=== PATIENT | female | born 1950 | race Caucasian/White ===

== ENCOUNTER 2022-07-02 12:06 | Outpatient (CLI) | payer MEDICARE | END 2022-07-02 12:07 | disposition home or self-care (01) | LOC: BICCT 12:06 → EDSEX 13:00 | PROVIDERS: ATTEND Family Medicine Sports Medicine | DX: Z12.31 Encounter for screening mammogram for malignant neoplasm of breast (principal); Z13.820 Encounter for screening for osteoporosis; Z12.2 Encounter for screening for malignant neoplasm of respiratory organs; F17.210 Nicotine dependence, cigarettes, uncomplicated; M85.89 Other specified disorders of bone density and structure, multiple sites; Z78.0 Asymptomatic menopausal state | CPT/HCPCS: 71271; 77063; 77067; 77080 ==

== ENCOUNTER 2023-04-05 08:54 | Observation (INO) | payer MEDICARE ==
[2023-04-05] MEDS ORDERED: Ipratropium/Albuterol 3 ML NEB ONE (09:18)
[2023-04-05] MEDS ORDERED: Dexamethasone 10 MG/ML VIAL ONE (09:45)
[2023-04-05] MEDS ORDERED: Azithromycin 500 MG VIAL ONE (09:46)
[2023-04-05 09:55] LABS: #Monocytes 0.9 thou/uL (0.11-0.59); #Neutrophils 5.2 thou/uL (1.40-6.50); %Basophils 0.3 % (0.0-1.0); %Lymphocytes 19.9 % (21.0-51.0); %Monocytes 11.3 % (0.0-10.0); %Neutrophils 68.2 % (42.0-75.0); Hematocrit 42.5 % (36.0-47.0); Hemoglobin 14.2 g/dL (12.0-16.0); Mean Corpuscular HGB CONC 33.4 g/dL (32.0-36.0); Mean Corpuscular Volume 89.9 fl (78.0-98.0); Mean Platelet Volume 9.7 fL (7.4-10.4); Platelet Count 123 10x3/uL (130-400); RBC Distribution Width 12.1 % (11.5-14.5); Red Blood Cell (RBC) Count 4.73 mill/uL (4.20-5.40); White Blood Cell (WBC) Count 7.6 10x3/uL (4.8-10.8)
[2023-04-05 10:19] LABS: ALT (SGPT) 15 U/L (8-55); AST (SGOT) 35 U/L (5-34); Albumin 4.2 g/dL (3.4-4.8); Alkaline Phosphatase 92 U/L (40-110); Anion Gap 15 mmol/L (10-20); BUN (Urea Nitrogen) 14 mg/dL (9.8-20.1); Bilirubin, Total 0.5 mg/dL (0.2-1.2); Calc. Creatinine Clearance 0 mL/min (70-130); Calcium 8.9 mg/dL (7.8-10.44); Carbon Dioxide 25 mmol/L (23-31); Chloride 100 mmol/L (98-107); Estimated GFR 54; Globulin 3.1 g/dL (2.4-3.5); Glucose 110 mg/dL (83-110); Potassium 3.7 mmol/L (3.5-5.1); Protein, Total 7.3 g/dL (5.8-8.1); Sodium 136 mmol/L (136-145)
[2023-04-05 11:19] LABS: SARS-CoV-2 NAA Rapid Test Not Detected (NotDetected)
[2023-04-05 11:21] LABS: Actual Bicarbonate (HCO3v) 24.3 mEq/L (22-28); Analyzer IN Cardio ER; Base Excess -2.5 mEq/L (-2.0 to +3.0); Calcium, Ionized (venous) 1.07 mmol/L (1.16-1.32); Chloride (VBG) 98 mmol/L (98-106); Hematocrit-VBG 38 % (36.0-47.0); Hemoglobin (Hb) 12.8 g/dL (11.7-16.1); Potassium (VBG) 3.67 mmol/L (3.70-5.30); Sodium 131 mmol/L (133-146); pH (venous) 7.303 (7.32-7.43)
[2023-04-05] MEDS ORDERED: Albuterol 2.5 MG (3 mL) NEB ONE (11:24)
[2023-04-05] MEDS ORDERED: Ipratropium Bromide 2.5 ml Neb ONE (11:25)
[2023-04-05] MEDS ORDERED: Albuterol 2.5 MG (0.5 mL) NEB ONE (11:25)
[2023-04-05] MEDS ORDERED: cefTRIAXone (ROCEPHIN) 2 GM VIAL ONE (13:38)
[2023-04-05] MEDS ORDERED: Sodium Chloride 0.9% 100 ML ONE (13:38)
[2023-04-05] MEDS ORDERED: Magnesium 2 GM/50 ML BAG (IN WATER) ONE (13:38)
[2023-04-05 13:45] LABS: Troponin I 0.022 ng/mL (< 0.028)
[2023-04-05] MEDS ORDERED: Oseltamivir 75 MG CAP ONE (14:08)
[2023-04-05] MEDS ORDERED: Ondansetron PF 4 MG/2 ML Vial IVP PRN (15:29)
[2023-04-05] MEDS ORDERED: Albuterol 2.5 MG (3 mL) NEB NEB PRN (15:31)
[2023-04-05 17:31] VITALS: BMI 27.3
[2023-04-05] MEDS: Nicotine 21 MG PATCH TD SCH (17:36)
[2023-04-05] MEDS: methylPREDNISolone Sod Succ 40 MG VIAL IVP SCH ×2 (17:54→23:03)
[2023-04-05] MEDS: Ipratropium/Albuterol 3 ML NEB NEB SCH ×2 (19:03→23:01)
[2023-04-05 19:32] LABS: Troponin I 0.024 ng/mL (< 0.028)
[2023-04-05] MEDS ORDERED: Oseltamivir 75 MG CAP PO SCH (21:00)
[2023-04-05] MEDS: Oseltamivir 6 MG/ML ORAL SUSP PO SCH (23:03)
[2023-04-06] MEDS: Ipratropium/Albuterol 3 ML NEB NEB SCH ×6 (03:06→23:56)
[2023-04-06] MEDS: methylPREDNISolone Sod Succ 40 MG VIAL IVP SCH ×3 (05:31→17:26)
[2023-04-06 06:51] LABS: #Monocytes 0.7 thou/uL (0.11-0.59); #Neutrophils 13.5 thou/uL (1.40-6.50); %Basophils 0.1 % (0.0-1.0); %Lymphocytes 5.5 % (21.0-51.0); %Monocytes 4.7 % (0.0-10.0); %Neutrophils 89.5 % (42.0-75.0); Hematocrit 35.7 % (36.0-47.0); Hemoglobin 12.1 g/dL (12.0-16.0); Mean Corpuscular HGB CONC 33.9 g/dL (32.0-36.0); Mean Corpuscular Hemoglobin 30.2 pg (27.0-31.0); Mean Platelet Volume 9.4 fL (7.4-10.4); Platelet Count 121 10x3/uL (130-400); Red Blood Cell (RBC) Count 4.01 mill/uL (4.20-5.40); White Blood Cell (WBC) Count 15.1 10x3/uL (4.8-10.8)
[2023-04-06 08:13] LABS: Anion Gap 11 mmol/L (10-20); BUN (Urea Nitrogen) 23 mg/dL (9.8-20.1); Calc. Creatinine Clearance 49 mL/min (70-130); Calcium 8.6 mg/dL (7.8-10.44); Carbon Dioxide 24 mmol/L (23-31); Chloride 98 mmol/L (98-107); Estimated GFR 57; Glucose 160 mg/dL (83-110); Potassium 3.7 mmol/L (3.5-5.1); Sodium 129 mmol/L (136-145)
[2023-04-06] MEDS ORDERED: Non-Formulary Item 1 EACH (Losartan [Cozaar] 50 MG Tab) PO SCH (09:00)
[2023-04-06] MEDS ORDERED: Oseltamivir 6 MG/ML ORAL SUSP PO SCH (09:00)
[2023-04-06] MEDS: Nicotine 7 MG PATCH TD SCH (09:15)
[2023-04-06] MEDS: Oseltamivir 6 MG/ML ORAL SUSP PO SCH ×2 (09:16→20:13)
[2023-04-06] MEDS: Famotidine 20 MG TAB PO SCH ×2 (09:17→20:13)
[2023-04-06] MEDS: Aspirin 81 mg Enteric Coated Tablet PO SCH (09:17)
[2023-04-06] MEDS: Enoxaparin 40 MG (0.4 mL) SYRINGE SC SCH (09:17)
[2023-04-06] MEDS: Amlodipine 10 MG TAB PO SCH (09:17)
[2023-04-06] MEDS: Losartan 25 MG TAB PO SCH (09:17)
[2023-04-06] MEDS ORDERED: LevoFLOXacin 500 mg/D5W 500 MG in Premix 1 BAG IVPB SCH (10:00)
[2023-04-06] MEDS: Acetaminophen 325 MG TAB PO PRN (16:13)
[2023-04-06] MEDS ORDERED: Rosuvastatin 10 MG TAB PO SCH (21:00)
[2023-04-07] MEDS: methylPREDNISolone Sod Succ 40 MG VIAL IVP SCH ×2 (00:18→05:30)
[2023-04-07] MEDS: Acetaminophen 325 MG TAB PO PRN ×2 (00:27→08:50)
[2023-04-07] MEDS: Ipratropium/Albuterol 3 ML NEB NEB SCH ×3 (02:26→10:27)
[2023-04-07] MEDS: Famotidine 20 MG TAB PO SCH (08:49)
[2023-04-07] MEDS: Amlodipine 10 MG TAB PO SCH (08:49)
[2023-04-07] MEDS: Aspirin 81 mg Enteric Coated Tablet PO SCH (08:49)
[2023-04-07] MEDS: Nicotine 7 MG PATCH TD SCH (08:49)
[2023-04-07] MEDS: Losartan 25 MG TAB PO SCH (08:49)
[2023-04-07] MEDS: Enoxaparin 40 MG (0.4 mL) SYRINGE SC SCH (08:49)
[2023-04-07 09:37] VITALS: BP 113/68; TEMP 97.8
[2023-04-07] MEDS ORDERED: LevoFLOXacin 250 mg/D5W 250 MG in Premix 1 BAG IVPB SCH (10:00)
[2023-04-07] MEDS: Oseltamivir 6 MG/ML ORAL SUSP PO SCH (10:20)
== END 2023-04-07 12:05 | disposition home or self-care (01) ==
LOC: ERS 08:54 → T4-A 15:13
PROVIDERS: ADMIT Family Medicine; ATTEND Family Medicine
DX: J44.1 Chronic obstructive pulmonary disease with (acute) exacerbation (principal); J10.1 Influenza due to other identified influenza virus with other respiratory manifestations; R07.81 Pleurodynia; I10 Essential (primary) hypertension; E78.5 Hyperlipidemia, unspecified; I65.22 Occlusion and stenosis of left carotid artery; Z90.710 Acquired absence of both cervix and uterus; Z87.891 Personal history of nicotine dependence; Z98.890 Other specified postprocedural states; Z79.82 Long term (current) use of aspirin; Z79.899 Other long term (current) drug therapy
CPT/HCPCS: 0240U; 71045; 80048; 80053; 82805; 83605; 83880; 84484 ×2; 85025 ×2; 87040; 93005; 94640 ×4; 94644; 94760; 96365; 96367; 96372 ×2; 96375 ×3; 96376 ×3; 99285; G0378 ×4; J0456; 36415; J0696; J1100; J1650; J1956; J2920; J3475; J3490; J7611; J7620

== ENCOUNTER 2023-06-16 09:16 | Outpatient (CLI) | payer MEDICARE | END 2023-06-16 09:17 | disposition home or self-care (01) | LOC: RAD 09:16 | PROVIDERS: ATTEND Internal Medicine | DX: R06.00 Dyspnea, unspecified (principal) | CPT/HCPCS: 71046 ==